=== PATIENT | female | born 1980 | race Caucasian/White ===

== ENCOUNTER → 2021-02-21 | Outpatient (CLI) | payer MEDICAID ==
--- NOTE | 2021-02-25 10:02 | MM ---
Reason for exam: screening (asymptomatic). Last mammogram was performed 7 years ago. History: Patient is nulliparous. Took hormonal contraceptives for 3 years. Physical Findings: A clinical breast exam by your physician is recommended on an annual basis and results should be correlated with mammographic findings. MG 3D Screening Mammo W/Cad Bilateral CC and MLO view(s) were taken. Prior study comparison: February 16, 2014, CAD bilateral diagnostic mammogram. The breast tissue is extremely dense which could obscure a lesion on mammography. There is chronic nodularity in the left breast superiorly. No significant changes when compared with prior studies. ASSESSMENT: Benign, BI-RAD 2 RECOMMENDATION: Routine screening mammogram of both breasts in 1 year. Patient should continue monthly self breast exams. A negative report should not preclude additional follow up of suspicious palpable abnormalities.
== END | disposition home or self-care (01) ==
LOC: RADMAMWWP 14:31
PROVIDERS: ATTEND Obstetrics & Gynecology
DX: Z12.31 Encounter for screening mammogram for malignant neoplasm of breast (principal)
CPT/HCPCS: 77063; 77067

== ENCOUNTER → 2022-06-17 | Outpatient (CLI) | payer MEDICAID ==
--- NOTE | 2022-06-18 10:23 | MM ---
Reason for Exam: Screening (asymptomatic). Last mammogram was performed 1 year(s) and 4 month(s) ago. Patient History: Menarche at age 11. First Full-Term at age 26. Patient has history of breast feeding. Patient used Hormonal Contraceptives for 3 years. Last menstrual period: 06/08/2022 Risk Values: Eneida 5 year model risk: 0.7%. NCI Lifetime model risk: 10.9%. Prior Study Comparison: 02/16/2014 Bilateral Diagnostic Mammogram, [facility]. 02/21/2021 Bilateral Screening Mammogram, [facility]. Tissue Density: The breast tissue is heterogeneously dense. This may lower the sensitivity of mammography. Findings: Analyzed By CAD. No suspicious groups of microcalcifications, spiculated or lobular masses, architectural distortion or other secondary signs of malignancy are mammographically apparent. Overall Assessment: Benign, BI-RAD 2 Management: Screening Mammogram of both breasts in 1 year. A negative mammogram report should not preclude additional follow up of suspicious palpable abnormalities. Patient should continue monthly self breast exam. A clinical breast exam by your physician is recommended on an annual basis and results should be correlated with mammographic findings. Electronically signed and approved by: Dilip Rebolledo D.O. Radiologis
== END | disposition home or self-care (01) ==
LOC: RADMAMWWP 13:32
PROVIDERS: ATTEND Obstetrics & Gynecology
DX: Z12.31 Encounter for screening mammogram for malignant neoplasm of breast (principal)
CPT/HCPCS: 77063; 77067

== ENCOUNTER → 2023-09-03 | Outpatient (CLI) | payer MEDICAID ==
--- NOTE | 2023-09-04 09:04 | US ---
EXAMINATION TYPE: US transvaginal DATE OF EXAM: 09/03/2023 COMPARISON: NONE CLINICAL INDICATION: Female, 42 years old with history of R87.619 UNSP ABNORMAL CYTOLOG FINDINGS; Hx 1 miscarriage. Patient is having no pain or bleeding. . TECHNIQUE: Transvaginal (TV). Date of LMP: 08/11/2023 EXAM MEASUREMENTS: Uterus: 9.7 x 7.5 x 5.3 cm Endometrial Stripe: 0.92 cm Right Ovary: 2.8 x 1.8 x 1.4 cm Left Ovary: Not definitely seen. 1. Uterus: Retroverted *Appears heterogeneous. 2. Endometrium: Measures 0.92 cm. 3. Right Ovary: Anechoic area seen: 1.4 x 0.9 x 0.9 cm. 4. Left Ovary: Not definitely seen. Area seen in left adnexa could resemble left ovary. 5. Bilateral Adnexa: *Complex area seen within left adnexa: 3.2 x 2.6 x 2.0 cm. - question this coul d resemble left ovary versus other. 6. Posterior cul-de-sac: Fluid seen within cul-de-sac. IMPRESSION: Complex left ovarian lesion is nonspecific and likely reflects a hemorrhagic cyst or endometrioma in the appropriate clinical setting. Neoplasm is not excluded. Follow-up in 6 weeks is advised.
== END | disposition home or self-care (01) ==
LOC: RADUSWWP 16:10
PROVIDERS: ATTEND Obstetrics & Gynecology Obstetrics
DX: N83.8 Other noninflammatory disorders of ovary, fallopian tube and broad ligament (principal); R87.619 Unspecified abnormal cytological findings in specimens from cervix uteri
CPT/HCPCS: 76830

== ENCOUNTER → 2023-12-28 | Outpatient (CLI) | payer MEDICAID ==
[2023-12-28 16:04] LABS: Blood Urea Nitrogen 19.9 mg/dL (9.0-27.0); Carbon Dioxide 23.7 mmol/L (21.6-31.8); Chloride 107 mmol/L (96-109); Glucose 97 mg/dL (70-110); Potassium 4.2 mmol/L (3.5-5.5); Sodium 142 mmol/L (135-145)
[2023-12-28 16:09] LABS: Basophils # (A) 0.02 X 10*3/uL (0.00-0.10); Basophils % (A) 0.3 %; Eosinophils % (A) 3.3 %; HCT 37.8 % (37.2-46.3); HGB 12.3 g/dL (12.0-15.0); Lymphocytes # (A) 1.89 X 10*3/uL (0.90-5.00); Lymphocytes % (A) 30.9 %; MCH 29.4 pg (27.0-32.0); MCHC 32.5 g/dL (32.0-37.0); MCV 90.2 FL (80.0-97.0); Mean Platelet Volume 10.4 FL (9.5-12.2); Monocytes # (A) 0.41 X 10*3/uL (0.20-1.00); Monocytes % (A) 6.7 %; NRBC Per 100 WBC 0 X 10*3/uL (0.00-0.01); Neutrophils # (A) 3.57 X 10*3/uL (1.80-7.70); Neutrophils % (A) 58.5 %; Platelet Count 205 X 10*3/uL (140-440); RBC 4.19 X 10*6/uL (4.10-5.20); RDW 12.5 % (11.5-14.5); WBC 6.11 X 10*3/uL (4.50-10.00)
== END | disposition home or self-care (01) ==
LOC: LABPAT 09:07
PROVIDERS: ATTEND Obstetrics & Gynecology Obstetrics
DX: Z01.812 Encounter for preprocedural laboratory examination (principal); N92.0 Excessive and frequent menstruation with regular cycle; N94.6 Dysmenorrhea, unspecified; D36.9 Benign neoplasm, unspecified site; Z87.42 Personal history of other diseases of the female genital tract
CPT/HCPCS: 36415; 80051; 82565; 82947; 84520; 85025; 86850; 86900; 86901; 87086

== ENCOUNTER → 2025-03-31 | Outpatient (CLI) | payer MEDICAID ==
--- NOTE | 2025-03-31 07:57 | MM ---
Reason for Exam: Screening (asymptomatic). Last mammogram was performed 1 year(s) and 8 month(s) ago. Patient History: Menarche at age 11. First Full-Term at age 26. Left ovary removed at age 43. Hysterectomy at age 43. Patient has history of breast feeding. Patient used Hormonal Contraceptives for 3 years. Risk Values: Eneida 5 year model risk: 0.9%. NCI Lifetime model risk: 10.6%. Prior Study Comparison: 02/21/2021 Bilateral Screening Mammogram, [facility]. 06/17/2022 Bilateral MG 3D screening mammo w/cad, [facility]. 08/11/2023 Bilateral MG screening mammo w CAD, [facility]. Tissue Density: The breasts are heterogeneously dense, which may obscure small masses. Findings: Analyzed By CAD. Benign-appearing bilateral axillary lymph nodes are redemonstrated. There is no suspicious group of microcalcifications or new suspicious mass in either breast. Overall Assessment: Negative, BI-RAD 1 Management: Screening Mammogram of both breasts in 1 year. Some Advise annual bilateral breast ultrasound surveillance in patients with background dense tissue. Patient should continue monthly self-breast exams. A clinical breast exam by your physician is recommended on an annual basis. This exam should not preclude additional follow-up of suspicious palpable abnormalities. Note on Eneida scores and lifetime risk: 1. A Eneida score greater than 3% is considered moderate risk. If this is the case, consider specialist referral to assess eligibility for a risk reducing agent. 2. If overall lifetime risk for the development of breast cancer is 20% or higher, the patient may qualify for future screening with alternating mammogram and breast MRI. [facility], , 03/31/2025 7:54 AM. Electronically signed and approved by: Demetrio Nguyen M.D.
== END | disposition home or self-care (01) ==
LOC: RADMAMWWP 07:17
PROVIDERS: ATTEND Obstetrics & Gynecology Obstetrics
DX: Z12.31 Encounter for screening mammogram for malignant neoplasm of breast (principal); R92.333 Mammographic heterogeneous density, bilateral breasts; Z92.0 Personal history of contraception
CPT/HCPCS: 77063; 77067